=== PATIENT | male | born 1965 | race African-American/Black ===

== ENCOUNTER 2023-09-15 11:45 | Inpatient (IN) | payer MEDICAID ==
[~2023-09-15] VITALS: Ht 180.3 cm; Wt 87.0 kg
[2023-09-15 13:17] LABS: Hematocrit 44.6 % (41.0-53.0); Hemoglobin 14.5 g/dL (13.5-17.5); Mean Corpuscular Hemoglobin 29.1 pg (28.0-32.0); Mean Corpuscular Hgb Conc. 32.5 g/dL (32.0-36.0); Mean Corpuscular Volume 89.5 fL (80.0-100.0); Red Blood Cells 4.99 10^6/uL (4.5-5.90); Red Cell Distribution Width 13.7 % (11.8-14.3); White Blood Cell 20.7 10^3/uL (4.4-10.8)
[2023-09-15 13:30] LABS: Alanine Aminotransferase 11 U/L (7-40); Albumin 4.6 g/dL (3.2-4.8); Alkaline Phosphatase 80 U/L (46-116); Anion Gap 9 (5-15); Aspartate Aminotransferase 10 U/L (13-40); BUN/Creatinine Ratio 20.9 (10.0-20.0); Blood Urea Nitrogen 23 mg/dL (9-23); Carbon Dioxide 24 mmol/L (20-30); Chloride 102 mmol/L (98-107); Glucose 144 mg/dL (74-106); Lipase 22 U/L (12-53); Potassium 4.5 mmol/L (3.5-5.1); Sodium 135 mmol/L (136-145)
[2023-09-15 13:31] LABS: Bilirubin, Total 1.9 mg/dL (0.2-1.0); Total Protein 7.5 g/dL (5.7-8.2)
[2023-09-15 13:57] LABS: Basophils % (manual) 0 (0.0-2.0); Blast Cells 0; Eosinophils % (manual) 0 (0-7); Metamyelocytes % 0; Monocytes % (manual) 0 (0-12); Promyelocytes % 0; Reactive Lymphocytes 0
[2023-09-15 14:15] LABS: Urine Bacteria NONE SEEN /hpf (None Seen); Urine Blood 1+ /uL (Negative); Urine Clarity HAZY (Clear); Urine Color Brown (Yellow); Urine Hyaline Cast FEW /lpf (0 - 2); Urine Mucus MODERATE (None Seen); Urine Protein, UAD 2+ (Negative); Urine Specific Gravity 1.037 (1.001-1.035); Urine Urobilinogen >12.0 mg/dL (Negative); Urine WBC 4 /hpf (0 - 3); Urine pH 5.5 (5.0-8.0)
[2023-09-15] MEDS ORDERED: cefTRIAXone 1GM/50ML D5W 50 ML IV ONE (14:15)
[2023-09-15] MEDS ORDERED: metroNIDAZOLE 500MG/100ML 100 ML IV ONE (14:15)
[2023-09-15] MEDS ORDERED: SODIUM CHLORIDE 0.9% 1,000 ML IV ONE ×2 (14:15)
[2023-09-15 14:27] LABS: Band Neutrophils % (manual) 10; Lymphocytes % (manual) 3 (10.0-50.0); Myelocytes % 2
[2023-09-15 14:28] LABS: Platelet Estimate Adequate
[2023-09-15 14:52] LABS: INR 0.98 (0.9-1.15); Partial Thromboplastin Time 29.6 SEC (24.5-34.5); Prothrombin Time 10.3 sec (9.3-11.8)
[2023-09-15] MEDS ORDERED: ONDANSETRON HCL 4 MG/2 ML VIAL IV ONE (16:00)
[2023-09-15] MEDS ORDERED: ACETAMINOPHEN IV 1000 MG/100ML (10MG/ML) IV ONE (16:00)
[2023-09-15] MEDS ORDERED: MORPHINE SULFATE 4 MG/ML SYR/VIAL IV ONE (16:00)
[2023-09-15] MEDS ORDERED: VANCOMYCIN PER PHARMACY 0 MG IV SCH (17:45)
[2023-09-15] MEDS ORDERED: DEXTROSE (50%) 50ML SYRG IV PRN (17:45)
[2023-09-15] MEDS: SODIUM CHLORIDE 0.9% 1,000 ML IV SCH ×2 (17:45→18:45)
[2023-09-15] MEDS ORDERED: SODIUM CHLORIDE 0.9% 2,000 ML IV ONE (17:45)
[2023-09-15] MEDS ORDERED: VANCOMYCIN 1GM/250ML 250 ML IV ONE ×2 (18:30→20:45)
[2023-09-15 18:54] LABS: INR 1.01 (0.9-1.15); Prothrombin Time 10.6 sec (9.3-11.8)
[2023-09-15 19:57] VITALS: PULSE 85; RESP 22; O2SAT 93
[2023-09-15] MEDS: InsuLIN REG 1unit/0.01ml Soln (100units/ml) SC SCH (20:58)
[2023-09-15] MEDS: ACCU-CHEK COMFORT CURVE STRIP VI SCH (21:00)
[2023-09-15] MEDS: CEFEPIME 2GM/50ML NS 50 ML IV SCH (23:47)
[2023-09-16] MEDS: MORPHINE SULFATE INJ 2 MG/ml SYRG IV PRN (02:24)
[2023-09-16] MEDS: ONDANSETRON HCL 4 MG/2 ML VIAL IV PRN (02:24)
[2023-09-16 04:23] LABS: Basophils # (auto) 0.1 10 ^3/uL (0-0.2); Basophils % (auto) 0.3 % (0.0-2.0); Eosinophils # (auto) 0 10 ^3/uL (0-0.8); Eosinophils % (auto) 0.1 % (0.0-7.0); Hemoglobin 12.5 g/dL (13.5-17.5); Mean Corpuscular Hemoglobin 28.7 pg (28.0-32.0); Mean Corpuscular Volume 89.5 fL (80.0-100.0); Monocytes # (auto) 0.7 10 ^3/uL (0-1.3); Monocytes % (auto) 4.5 % (0.0-12.0); Neutrophils # (auto) 14.7 10 ^3/uL (1.6-8.6); Neutrophils % (auto) 89.1 % (37.0-80.0); Red Blood Cells 4.35 10^6/uL (4.5-5.90); Red Cell Distribution Width 13.6 % (11.8-14.3); White Blood Cell 16.5 10^3/uL (4.4-10.8)
[2023-09-16 05:01] LABS: Alanine Aminotransferase < 9 U/L (7-40); Albumin 4.1 g/dL (3.2-4.8); Alkaline Phosphatase 60 U/L (46-116); Anion Gap 5 (5-15); Aspartate Aminotransferase 11 U/L (13-40); BUN/Creatinine Ratio 16.5 (10.0-20.0); Bilirubin, Total 0.9 mg/dL (0.2-1.0); Blood Urea Nitrogen 13 mg/dL (9-23); Calcium 9.3 mg/dL (8.7-10.4); Carbon Dioxide 24 mmol/L (20-30); Chloride 106 mmol/L (98-107); Glucose 128 mg/dL (74-106); Potassium 4.7 mmol/L (3.5-5.1); Sodium 135 mmol/L (136-145); Total Protein 6.9 g/dL (5.7-8.2)
[2023-09-16] MEDS: CEFEPIME 2GM/50ML NS 50 ML IV SCH ×2 (06:02→17:51)
[2023-09-16] MEDS: ACCU-CHEK COMFORT CURVE STRIP VI SCH ×3 (06:02→18:00)
[2023-09-16] MEDS: InsuLIN REG 1unit/0.01ml Soln (100units/ml) SC SCH ×3 (06:08→18:00)
[2023-09-16] MEDS ORDERED: ACETAMINOPHEN IV 1000 MG/100ML (10MG/ML) IV ONE (08:30)
[2023-09-16] MEDS ORDERED: DexAMETHasone SOD PHOS 4 MG/1ML SDV INJ ONE (08:40)
[2023-09-16] MEDS ORDERED: EPINEPHrine HCL 1 MG/1 ML AMP ONE (08:40)
[2023-09-16] MEDS ORDERED: LIDOCAINE 2% JELLY 11ml (GLYDO) ONE (08:41)
[2023-09-16] MEDS ORDERED: BUPIVACAINE HCL 50 ML ONE (08:41)
[2023-09-16] MEDS ORDERED: GABAPENTIN 300 MG CAP PO ONE (08:45)
[2023-09-16] MEDS ORDERED: CELECOXIB 100 MG CAP PO ONE (08:45)
[2023-09-16] MEDS ORDERED: SODIUM CHLORIDE LOCK 30 ML ONE (08:52)
[2023-09-16] MEDS ORDERED: SODIUM CHLORIDE LOCK 20 ML ONE (08:53)
[2023-09-16] MEDS ORDERED: KETOROLAC TROMETH 30 MG/ML 1ML VIAL ONE (08:55)
[2023-09-16] MEDS ORDERED: PROPOFOL 10 MG/ML 20 ML IV ONE (08:55)
[2023-09-16] MEDS ORDERED: ONDANSETRON HCL 4 MG/2 ML VIAL ONE (08:55)
[2023-09-16] MEDS ORDERED: DexAMETHasone SOD PHOS 10MG/1ML VIAL INJ ONE (08:55)
[2023-09-16] MEDS ORDERED: ROCURONIUM 10MG/ML 10ML VIAL IV ONE (08:55)
[2023-09-16] MEDS ORDERED: GLYCOPYRROLATE 0.2 MG/ML 1ML VIAL ONE (08:55)
[2023-09-16] MEDS ORDERED: LIDOCAINE 2% (LOCAL ANESTH.) PF 5ml SDV ONE (08:55)
[2023-09-16] MEDS: SODIUM CHLORIDE 0.9% 1,000 ML IV SCH ×2 (10:25→17:55)
[2023-09-16] MEDS ORDERED: fentaNYL CITRATE 100 MCG/2 ML VL ONE (10:36)
[2023-09-16] MEDS ORDERED: ESMOLOL HCL 10 ML IV ONE (10:38)
[2023-09-16] MEDS ORDERED: LABETALOL HCL 5 MG/ML ML 20ML VIAL IV ONE (11:04)
[2023-09-16] MEDS ORDERED: VANCOMYCIN 1GM/250ML 250 ML IV SCH (13:00)
[2023-09-16 13:10] VITALS: O2SAT 99
[2023-09-16] MEDS ORDERED: ONDANSETRON HCL 4 MG/2 ML VIAL IV PRN (13:30)
[2023-09-16] MEDS ORDERED: LABETALOL HCL 5 MG/ML 4ML SYRINGE IV PRN (13:30)
[2023-09-16] MEDS ORDERED: HYDROmorphone HCL 2 MG/ML VL/or syr IV PRN (13:30)
[2023-09-16] MEDS ORDERED: hydrALAZINE HCL 20 MG/ML VL IV PRN (13:30)
[2023-09-16] MEDS ORDERED: FLUMAZENIL 0.1 MG/ML INJ 10ML MDV IV PRN (13:30)
[2023-09-16] MEDS ORDERED: oxyCODONE HCL 5MG TAB PO PRN (13:30)
[2023-09-16] MEDS ORDERED: fentaNYL CITRATE 100 MCG/2 ML VL IV PRN (13:30)
[2023-09-16] MEDS ORDERED: ePHEDrine SULFATE 50 MG/ML AMP IV PRN (13:30)
[2023-09-16] MEDS ORDERED: NALOXONE HCL 0.4 MG/ML VIAL IV PRN (13:30)
[2023-09-16 16:05] VITALS: BP 145/89; PULSE 76; RESP 18; TEMP 98.3
[2023-09-16 16:15] VITALS: PULSE 76; RESP 18; O2SAT 95
[2023-09-16 17:00] VITALS: BP 145/89; PULSE 76; RESP 18; TEMP 98.3; O2SAT 95
[2023-09-16 20:00] VITALS: BP 140/89; PULSE 85; RESP 18; RESP 23; TEMP 99.1; O2SAT 97
[2023-09-16 22:00] VITALS: BP 140/87; PULSE 85; RESP 23; TEMP 99.1; O2SAT 97
[2023-09-17] MEDS: VANCOMYCIN 1GM/250ML 250 ML IV SCH ×2 (01:14→07:04)
[2023-09-17] MEDS: ACCU-CHEK COMFORT CURVE STRIP VI SCH ×4 (01:17→18:00)
[2023-09-17] MEDS: MORPHINE SULFATE INJ 2 MG/ml SYRG IV PRN ×4 (01:30→21:23)
[2023-09-17] MEDS: SODIUM CHLORIDE 0.9% 1,000 ML IV SCH (03:05)
[2023-09-17 05:00] VITALS: BP 143/76; PULSE 77; RESP 20; TEMP 99; O2SAT 95
[2023-09-17 05:06] LABS: Basophils # (auto) 0 10 ^3/uL (0-0.2); Basophils % (auto) 0.1 % (0.0-2.0); Eosinophils # (auto) 0 10 ^3/uL (0-0.8); Hematocrit 36.1 % (41.0-53.0); Hemoglobin 11.6 g/dL (13.5-17.5); Lymphocytes # (auto) 0.7 10 ^3/uL (0.4-5.4); Lymphocytes % (auto) 3.9 % (10.0-50.0); Mean Corpuscular Hemoglobin 28.4 pg (28.0-32.0); Mean Corpuscular Hgb Conc. 32.1 g/dL (32.0-36.0); Mean Corpuscular Volume 88.6 fL (80.0-100.0); Monocytes % (auto) 5.3 % (0.0-12.0); Neutrophils # (auto) 16.9 10 ^3/uL (1.6-8.6); Neutrophils % (auto) 90.7 % (37.0-80.0); Red Blood Cells 4.07 10^6/uL (4.5-5.90); Red Cell Distribution Width 13.8 % (11.8-14.3); White Blood Cell 18.6 10^3/uL (4.4-10.8)
[2023-09-17 05:20] LABS: Albumin 3.5 g/dL (3.2-4.8); Alkaline Phosphatase 52 U/L (46-116); Anion Gap 5 (5-15); Aspartate Aminotransferase 17 U/L (13-40); Bilirubin, Total 0.7 mg/dL (0.2-1.0); Blood Urea Nitrogen 20 mg/dL (9-23); Calcium 8.8 mg/dL (8.7-10.4); Carbon Dioxide 25 mmol/L (20-30); Chloride 109 mmol/L (98-107); Glucose 135 mg/dL (74-106); Magnesium 1.9 mg/dL (1.6-2.6); Potassium 4.5 mmol/L (3.5-5.1); Sodium 139 mmol/L (136-145)
[2023-09-17 05:24] LABS: Alanine Aminotransferase 9 U/L (7-40)
[2023-09-17] MEDS: PANTOPRAZOLE 40 MG/10 ML VIAL INJ IV SCH ×2 (05:38→08:58)
[2023-09-17] MEDS: InsuLIN REG 1unit/0.01ml Soln (100units/ml) SC SCH ×4 (05:38→18:00)
[2023-09-17] MEDS ORDERED: CEFEPIME 2GM/50ML NS 50 ML IV SCH (06:00)
[2023-09-17 09:00] VITALS: BP 137/78; PULSE 67; RESP 19; TEMP 98.1; O2SAT 92
[2023-09-17] MEDS: metroNIDAZOLE 500MG/100ML 100 ML IV SCH ×2 (13:39→21:21)
[2023-09-17] MEDS ORDERED: VANCOMYCIN 1GM/250ML 250 ML IV SCH (15:00)
[2023-09-17] MEDS ORDERED: CLINIMIX PER PHARMACY 0 ML IV SCH (15:15)
[2023-09-17] MEDS ORDERED: DEXTROSE (50%) 50ML SYRG IV SCH (16:30)
[2023-09-17 17:00] VITALS: BP 144/84; PULSE 72; RESP 19; TEMP 98.3; O2SAT 93
[2023-09-17] MEDS: ONDANSETRON HCL 4 MG/2 ML VIAL IV PRN (17:00)
[2023-09-17 20:00] VITALS: PULSE 80; RESP 18
[2023-09-17] MEDS: AMINO ACID INFUSION IN D10W 1,000 ML IV SCH (20:49)
[2023-09-17] MEDS: CIPROFLOXACIN 400MG/200ML 200 ML IV SCH (22:58)
[2023-09-17 23:59] VITALS: BP 132/73; PULSE 71; RESP 18; TEMP 98.4; O2SAT 92
[2023-09-18] MEDS: ACCU-CHEK COMFORT CURVE STRIP VI SCH ×4 (01:41→18:00)
[2023-09-18 04:54] VITALS: BP 133/78; PULSE 65; RESP 17; TEMP 97.7; O2SAT 92
[2023-09-18] MEDS: metroNIDAZOLE 500MG/100ML 100 ML IV SCH ×3 (05:55→20:51)
[2023-09-18] MEDS: InsuLIN REG 1unit/0.01ml Soln (100units/ml) SC SCH ×4 (06:00→18:00)
[2023-09-18 06:58] LABS: Alanine Aminotransferase 12 U/L (7-40); Albumin 3.5 g/dL (3.2-4.8); Alkaline Phosphatase 48 U/L (46-116); Anion Gap 7 (5-15); Aspartate Aminotransferase 19 U/L (13-40); Bilirubin, Total 0.6 mg/dL (0.2-1.0); Blood Urea Nitrogen 18 mg/dL (9-23); Calcium 9.2 mg/dL (8.5-10.1); Carbon Dioxide 26 mmol/L (20-30); Chloride 109 mmol/L (98-107); Cholesterol 135 mg/dL (< 200); Glucose 125 mg/dL (74-106); HDL Cholesterol 16 mg/dL (40-59); LDL Cholesterol 90 mg/dL (< 100); Potassium 3.8 mmol/L (3.5-5.1); Sodium 142 mmol/L (136-145); Total Protein 5.6 g/dL (5.7-8.2); Triglycerides 135 mg/dL (< 150)
[2023-09-18 07:08] LABS: Basophils # (auto) 0 10 ^3/uL (0-0.2); Basophils % (auto) 0.1 % (0.0-2.0); Eosinophils # (auto) 0 10 ^3/uL (0-0.8); Eosinophils % (auto) 0.2 % (0.0-7.0); Lymphocytes # (auto) 1.7 10 ^3/uL (0.4-5.4); Lymphocytes % (auto) 11.6 % (10.0-50.0); Mean Corpuscular Hemoglobin 28.7 pg (28.0-32.0); Mean Corpuscular Hgb Conc. 32.3 g/dL (32.0-36.0); Mean Corpuscular Volume 88.9 fL (80.0-100.0); Monocytes % (auto) 7.1 % (0.0-12.0); Neutrophils # (auto) 11.6 10 ^3/uL (1.6-8.6); Red Blood Cells 3.83 10^6/uL (4.5-5.90); Red Cell Distribution Width 13.7 % (11.8-14.3); White Blood Cell 14.3 10^3/uL (4.4-10.8)
[2023-09-18 07:13] LABS: Magnesium 1.9 mg/dL (1.6-2.6)
[2023-09-18 09:00] VITALS: BP 140/78; PULSE 67; RESP 18; TEMP 99.2; O2SAT 94
[2023-09-18] MEDS: PANTOPRAZOLE 40 MG/10 ML VIAL INJ IV SCH (09:52)
[2023-09-18] MEDS: CIPROFLOXACIN 400MG/200ML 200 ML IV SCH ×2 (09:53→20:35)
[2023-09-18 12:14] VITALS: BP 125/75; PULSE 56; RESP 16; TEMP 98.8; O2SAT 95
[2023-09-18] MEDS: MORPHINE SULFATE INJ 2 MG/ml SYRG IV PRN (15:04)
[2023-09-18 17:00] VITALS: BP 136/94; PULSE 67; RESP 18; TEMP 98.7; O2SAT 94
[2023-09-18 20:00] VITALS: RESP 16; O2SAT 93
[2023-09-18] MEDS: AMINO ACID INFUSION IN D10W 1,000 ML IV SCH (20:35)
[2023-09-18 21:32] VITALS: BP 141/85; PULSE 63; RESP 16; TEMP 97.6; O2SAT 93
[2023-09-19] VITALS (7 sets, daily range): BP systolic 120–152; BP diastolic 67–85; PULSE 58–68; RESP 16–22; TEMP 97.7–98.2; O2SAT 92–100
[2023-09-19] MEDS: ACCU-CHEK COMFORT CURVE STRIP VI SCH ×4 (00:49→18:20)
[2023-09-19 05:31] LABS: Calcium 9.3 mg/dL (8.5-10.1); Chloride 109 mmol/L (98-107); Potassium 3.8 mmol/L (3.5-5.1); Sodium 141 mmol/L (136-145)
[2023-09-19 05:33] LABS: Anion Gap 8 (5-15); Carbon Dioxide 24 mmol/L (20-30)
[2023-09-19 05:36] LABS: GFR African American 166 mL/min; GFR Non-African American 137 mL/min; Glucose 102 mg/dL (74-106)
[2023-09-19 05:37] LABS: Albumin 3.6 g/dL (3.2-4.8); BUN/Creatinine Ratio 26.6 (10.0-20.0); Blood Urea Nitrogen 17 mg/dL (9-23)
[2023-09-19 05:39] LABS: Phosphorus 3.7 mg/dL (2.4-5.1)
[2023-09-19 05:49] LABS: Basophils # (auto) 0 10 ^3/uL (0-0.2); Basophils % (auto) 0.2 % (0.0-2.0); Eosinophils # (auto) 0.1 10 ^3/uL (0-0.8); Eosinophils % (auto) 0.5 % (0.0-7.0); Hematocrit 34.7 % (41.0-53.0); Hemoglobin 11.2 g/dL (13.5-17.5); Lymphocytes # (auto) 1.8 10 ^3/uL (0.4-5.4); Lymphocytes % (auto) 14.5 % (10.0-50.0); Mean Corpuscular Hemoglobin 28.7 pg (28.0-32.0); Mean Corpuscular Hgb Conc. 32.4 g/dL (32.0-36.0); Mean Corpuscular Volume 88.5 fL (80.0-100.0); Monocytes # (auto) 1.1 10 ^3/uL (0-1.3); Monocytes % (auto) 8.9 % (0.0-12.0); Neutrophils # (auto) 9.5 10 ^3/uL (1.6-8.6); Neutrophils % (auto) 75.9 % (37.0-80.0); Nucleated Red Blood Cells % 0.2 %; Red Blood Cells 3.92 10^6/uL (4.5-5.90); Red Cell Distribution Width 13.6 % (11.8-14.3); White Blood Cell 12.6 10^3/uL (4.4-10.8)
[2023-09-19] MEDS: InsuLIN REG 1unit/0.01ml Soln (100units/ml) SC SCH ×4 (06:00→18:00)
[2023-09-19] MEDS: metroNIDAZOLE 500MG/100ML 100 ML IV SCH ×2 (06:36→15:56)
[2023-09-19 06:43] LABS: Magnesium 1.9 mg/dL (1.6-2.6)
[2023-09-19] MEDS: CIPROFLOXACIN 400MG/200ML 200 ML IV SCH (10:53)
[2023-09-19] MEDS: PANTOPRAZOLE 40 MG/10 ML VIAL INJ IV SCH (10:53)
[2023-09-19] MEDS ORDERED: TPN PER PHARMACY 0 ML IV SCH (14:30)
[2023-09-19] MEDS ORDERED: AMINO ACID INFUSION IN D10W 1,000 ML IV NR (20:00)
[2023-09-19] MEDS: MORPHINE SULFATE INJ 2 MG/ml SYRG IV PRN (23:58)
[2023-09-20] MEDS: ACCU-CHEK COMFORT CURVE STRIP VI SCH ×4 (00:21→18:00)
[2023-09-20] MEDS: metroNIDAZOLE 500MG/100ML 100 ML IV SCH ×3 (01:36→22:00)
[2023-09-20 05:04] VITALS: BP 146/83; PULSE 56; RESP 18; TEMP 97.8; O2SAT 93
[2023-09-20] MEDS ORDERED: hydrALAZINE HCL 20 MG/ML VL IV PRN (06:45)
[2023-09-20] MEDS: InsuLIN REG 1unit/0.01ml Soln (100units/ml) SC SCH ×4 (07:00→18:00)
[2023-09-20 07:05] LABS: Hemoglobin 11.9 g/dL (13.5-17.5)
[2023-09-20 07:07] LABS: Mean Corpuscular Hemoglobin 29.2 pg (28.0-32.0); Mean Corpuscular Volume 88.5 fL (80.0-100.0); Red Blood Cells 4.07 10^6/uL (4.5-5.90); Red Cell Distribution Width 13.9 % (11.8-14.3); White Blood Cell 14.1 10^3/uL (4.4-10.8)
[2023-09-20 07:15] LABS: Basophils % (manual) 0 (0.0-2.0); Blast Cells 0; Myelocytes % 0; Promyelocytes % 0; Reactive Lymphocytes 0
[2023-09-20 07:18] LABS: Alanine Aminotransferase 29 U/L (7-40); Albumin 3.8 g/dL (3.2-4.8); Alkaline Phosphatase 86 U/L (46-116); Anion Gap 8 (5-15); Aspartate Aminotransferase 33 U/L (13-40); BUN/Creatinine Ratio 27.4 (10.0-20.0); Blood Urea Nitrogen 17 mg/dL (9-23); Calcium 9.5 mg/dL (8.5-10.1); Carbon Dioxide 24 mmol/L (20-30); Chloride 107 mmol/L (98-107); Glucose 118 mg/dL (74-106); Potassium 3.6 mmol/L (3.5-5.1); Sodium 139 mmol/L (136-145)
[2023-09-20 07:19] LABS: Bilirubin, Total 1.3 mg/dL (0.2-1.0); Phosphorus 3.2 mg/dL (2.4-5.1); Total Protein 6.4 g/dL (5.7-8.2)
[2023-09-20 08:00] VITALS: PULSE 71; RESP 16; O2SAT 95
[2023-09-20 08:13] LABS: Band Neutrophils % (manual) 6; Eosinophils % (manual) 1 (0-7); Lymphocytes % (manual) 15 (10.0-50.0); Metamyelocytes % 1; Monocytes % (manual) 8 (0-12)
[2023-09-20 08:14] LABS: Platelet Estimate Increased; Tear Drop Cells FEW
[2023-09-20] MEDS: CIPROFLOXACIN 400MG/200ML 200 ML IV SCH ×3 (08:21→22:03)
[2023-09-20] MEDS: PANTOPRAZOLE 40 MG/10 ML VIAL INJ IV SCH (08:23)
[2023-09-20 12:22] LABS: Urine Bacteria NONE SEEN /hpf (None Seen); Urine Blood 1+ /uL (Negative); Urine Clarity Clear (Clear); Urine Color Yellow (Yellow); Urine Mucus FEW (None Seen); Urine Protein, UAD TRACE (Negative); Urine Specific Gravity 1.034 (1.001-1.035); Urine WBC 6 /hpf (0 - 3)
[2023-09-20 13:00] VITALS: BP 160/87; PULSE 71; RESP 20; TEMP 97.7; O2SAT 96
[2023-09-20 13:37] LABS: Magnesium 1.8 mg/dL (1.6-2.6)
[2023-09-20 17:00] VITALS: BP 137/90; PULSE 80; RESP 18; TEMP 97.8; O2SAT 98
[2023-09-20 20:00] VITALS: PULSE 76; RESP 20; O2SAT 95
[2023-09-20] MEDS ORDERED: PPN PER PHARMACY IV NR ×8 (20:00)
[2023-09-20] MEDS ORDERED: CLINIMIX PER PHARMACY 0 ML IV SCH (21:15)
[2023-09-20 22:00] VITALS: BP 131/89; PULSE 76; RESP 20; TEMP 98.5; O2SAT 95
[2023-09-20] MEDS: MORPHINE SULFATE INJ 2 MG/ml SYRG IV PRN (22:01)
[2023-09-21] MEDS: ACCU-CHEK COMFORT CURVE STRIP VI SCH ×5 (02:20→23:20)
[2023-09-21] MEDS: InsuLIN REG 1unit/0.01ml Soln (100units/ml) SC SCH ×5 (02:26→23:20)
[2023-09-21 05:00] VITALS: BP 131/88; PULSE 73; RESP 20; TEMP 97.6; O2SAT 98
[2023-09-21] MEDS: metroNIDAZOLE 500MG/100ML 100 ML IV SCH ×3 (07:13→22:39)
[2023-09-21 07:54] LABS: Basophils # (auto) 0.1 10 ^3/uL (0-0.2); Eosinophils # (auto) 0.2 10 ^3/uL (0-0.8); Eosinophils % (auto) 1.4 % (0.0-7.0); Mean Corpuscular Hgb Conc. 32.7 g/dL (32.0-36.0)
[2023-09-21 07:57] LABS: Basophils % (auto) 0.8 % (0.0-2.0); Hematocrit 38.9 % (41.0-53.0); Hemoglobin 12.7 g/dL (13.5-17.5); Lymphocytes % (auto) 15.8 % (10.0-50.0); Mean Corpuscular Hemoglobin 29.2 pg (28.0-32.0); Mean Corpuscular Volume 89.1 fL (80.0-100.0); Monocytes # (auto) 0.9 10 ^3/uL (0-1.3); Monocytes % (auto) 7.3 % (0.0-12.0); Neutrophils # (auto) 9.4 10 ^3/uL (1.6-8.6); Neutrophils % (auto) 74.7 % (37.0-80.0); Nucleated Red Blood Cells % 0.1 %; Red Blood Cells 4.37 10^6/uL (4.5-5.90); Red Cell Distribution Width 13.8 % (11.8-14.3); White Blood Cell 12.6 10^3/uL (4.4-10.8)
[2023-09-21 08:14] LABS: Alanine Aminotransferase 57 U/L (7-40); Albumin 3.8 g/dL (3.2-4.8); Alkaline Phosphatase 94 U/L (46-116); Anion Gap 9 (5-15); Aspartate Aminotransferase 51 U/L (13-40); BUN/Creatinine Ratio 28.1 (10.0-20.0); Bilirubin, Total 1.4 mg/dL (0.2-1.0); Blood Urea Nitrogen 18 mg/dL (9-23); Calcium 9.4 mg/dL (8.5-10.1); Carbon Dioxide 23 mmol/L (20-30); Chloride 106 mmol/L (98-107); Glucose 113 mg/dL (74-106); Phosphorus 3.2 mg/dL (2.4-5.1); Potassium 3.9 mmol/L (3.5-5.1); Sodium 138 mmol/L (136-145)
[2023-09-21 08:15] LABS: Total Protein 6.5 g/dL (5.7-8.2)
[2023-09-21 09:00] VITALS: BP 129/86; PULSE 67; RESP 18; TEMP 97.6; O2SAT 94
[2023-09-21 09:03] LABS: Magnesium 1.9 mg/dL (1.6-2.6)
[2023-09-21] MEDS: CIPROFLOXACIN 400MG/200ML 200 ML IV SCH ×2 (09:21→22:39)
[2023-09-21 13:00] VITALS: BP 140/90; PULSE 75; RESP 19; TEMP 97.9; O2SAT 98
[2023-09-21 16:48] VITALS: BP 139/84; PULSE 76; RESP 18; TEMP 97.8; O2SAT 94
[2023-09-21] MEDS ORDERED: PPN PER PHARMACY IV NR ×10 (20:00)
[2023-09-21 20:15] VITALS: PULSE 74; RESP 18; O2SAT 94
[2023-09-21 22:00] VITALS: BP 111/78; PULSE 74; RESP 18; TEMP 98.3; O2SAT 94
[2023-09-22 05:00] VITALS: BP 132/78; PULSE 80; RESP 17; TEMP 97.9; O2SAT 99
[2023-09-22] MEDS: InsuLIN REG 1unit/0.01ml Soln (100units/ml) SC SCH ×4 (05:41→23:53)
[2023-09-22] MEDS: metroNIDAZOLE 500MG/100ML 100 ML IV SCH ×3 (05:41→22:35)
[2023-09-22] MEDS: ACCU-CHEK COMFORT CURVE STRIP VI SCH ×4 (05:41→23:53)
[2023-09-22 06:21] LABS: Hemoglobin 12.8 g/dL (13.5-17.5); Mean Corpuscular Volume 88.3 fL (80.0-100.0)
[2023-09-22 06:24] LABS: Hematocrit 39.1 % (41.0-53.0); Mean Corpuscular Hemoglobin 28.8 pg (28.0-32.0); Mean Corpuscular Hgb Conc. 32.7 g/dL (32.0-36.0); Red Blood Cells 4.44 10^6/uL (4.5-5.90); White Blood Cell 13.9 10^3/uL (4.4-10.8)
[2023-09-22 06:57] LABS: Alanine Aminotransferase 69 U/L (7-40); Albumin 3.8 g/dL (3.2-4.8); Alkaline Phosphatase 99 U/L (46-116); Anion Gap 8 (5-15); Aspartate Aminotransferase 48 U/L (13-40); BUN/Creatinine Ratio 29.3 (10.0-20.0); Bilirubin, Total 1.3 mg/dL (0.2-1.0); Blood Urea Nitrogen 17 mg/dL (9-23); Calcium 9.2 mg/dL (8.7-10.4); Carbon Dioxide 23 mmol/L (20-30); Chloride 106 mmol/L (98-107); Glucose 99 mg/dL (74-106); Magnesium 1.8 mg/dL (1.6-2.6); Potassium 4.2 mmol/L (3.5-5.1); Sodium 137 mmol/L (136-145); Total Protein 6.5 g/dL (5.7-8.2)
[2023-09-22 07:10] LABS: Basophils % (manual) 0 (0.0-2.0); Blast Cells 0; Promyelocytes % 0; Reactive Lymphocytes 0
[2023-09-22 09:15] LABS: Band Neutrophils % (manual) 3; Eosinophils % (manual) 1 (0-7); Lymphocytes % (manual) 10 (10.0-50.0); Metamyelocytes % 3; Monocytes % (manual) 9 (0-12); Myelocytes % 1; Platelet Estimate Increased
[2023-09-22] MEDS: CIPROFLOXACIN 400MG/200ML 200 ML IV SCH ×2 (09:48→21:22)
[2023-09-22 10:55] VITALS: BP 110/75; PULSE 74; RESP 16; TEMP 98.9; O2SAT 97
[2023-09-22 17:33] VITALS: BP 132/69; PULSE 71; RESP 18; TEMP 98.7; O2SAT 98
[2023-09-22] MEDS ORDERED: TPN PER PHARMACY IV NR ×10 (20:00)
[2023-09-22] MEDS ORDERED: PPN PER PHARMACY IV NR ×10 (20:00)
[2023-09-22 22:00] VITALS: BP 119/72; PULSE 72; RESP 17; TEMP 98.1; O2SAT 94
[2023-09-23 05:00] VITALS: BP 125/76; PULSE 69; RESP 19; TEMP 98; O2SAT 97
[2023-09-23 05:46] LABS: Neutrophils # (auto) 9.2 10 ^3/uL (1.6-8.6)
[2023-09-23 05:48] LABS: Basophils # (auto) 0.1 10 ^3/uL (0-0.2); Basophils % (auto) 0.6 % (0.0-2.0); Eosinophils # (auto) 0.1 10 ^3/uL (0-0.8); Eosinophils % (auto) 1.2 % (0.0-7.0); Hematocrit 37.6 % (41.0-53.0); Hemoglobin 12.6 g/dL (13.5-17.5); Lymphocytes % (auto) 15.9 % (10.0-50.0); Mean Corpuscular Hemoglobin 29.8 pg (28.0-32.0); Mean Corpuscular Hgb Conc. 33.7 g/dL (32.0-36.0); Mean Corpuscular Volume 88.6 fL (80.0-100.0); Monocytes % (auto) 8.4 % (0.0-12.0); Neutrophils % (auto) 73.9 % (37.0-80.0); Red Blood Cells 4.24 10^6/uL (4.5-5.90); Red Cell Distribution Width 13.9 % (11.8-14.3); White Blood Cell 12.4 10^3/uL (4.4-10.8)
[2023-09-23 05:54] LABS: Alanine Aminotransferase 67 U/L (7-40); Albumin 3.7 g/dL (3.2-4.8); Alkaline Phosphatase 99 U/L (46-116); Anion Gap 6 (5-15); Aspartate Aminotransferase 38 U/L (13-40); Blood Urea Nitrogen 17 mg/dL (9-23); Calcium 8.9 mg/dL (8.7-10.4); Carbon Dioxide 25 mmol/L (20-30); Chloride 104 mmol/L (98-107); Glucose 114 mg/dL (74-106); Magnesium 1.9 mg/dL (1.6-2.6); Potassium 4.2 mmol/L (3.5-5.1); Sodium 135 mmol/L (136-145)
[2023-09-23 05:55] LABS: Bilirubin, Total 0.9 mg/dL (0.2-1.0)
[2023-09-23 05:56] LABS: Total Protein 6.4 g/dL (5.7-8.2)
[2023-09-23] MEDS: InsuLIN REG 1unit/0.01ml Soln (100units/ml) SC SCH ×3 (06:00→17:51)
[2023-09-23] MEDS: ACCU-CHEK COMFORT CURVE STRIP VI SCH ×3 (06:04→17:51)
[2023-09-23] MEDS: metroNIDAZOLE 500MG/100ML 100 ML IV SCH ×3 (06:04→22:00)
[2023-09-23 08:00] VITALS: BP 130/83; PULSE 76; RESP 20; TEMP 97.4; O2SAT 97
[2023-09-23] MEDS: CIPROFLOXACIN 400MG/200ML 200 ML IV SCH ×2 (08:43→22:00)
[2023-09-23 08:54] VITALS: BP 130/83; PULSE 76; RESP 20; TEMP 97.4; O2SAT 97
[2023-09-23 13:00] VITALS: BP 121/82; PULSE 93; RESP 20; TEMP 98.1; O2SAT 96
[2023-09-23 17:00] VITALS: BP 131/75; PULSE 71; RESP 20; TEMP 98.8; O2SAT 99
[2023-09-23] MEDS ORDERED: PPN PER PHARMACY IV NR ×11 (20:00)
[2023-09-23 22:00] VITALS: BP 117/75; PULSE 71; RESP 20; TEMP 98.4; O2SAT 98
[2023-09-24] MEDS: ACCU-CHEK COMFORT CURVE STRIP VI SCH ×2 (01:25→06:00)
[2023-09-24] MEDS: InsuLIN REG 1unit/0.01ml Soln (100units/ml) SC SCH ×2 (01:25→06:00)
[2023-09-24 05:00] VITALS: BP 125/71; PULSE 68; RESP 18; TEMP 98.4; O2SAT 99
[2023-09-24] MEDS: metroNIDAZOLE 500MG/100ML 100 ML IV SCH ×2 (06:00→13:47)
[2023-09-24 06:14] LABS: Basophils # (auto) 0 10 ^3/uL (0-0.2); Basophils % (auto) 0.3 % (0.0-2.0); Eosinophils # (auto) 0.1 10 ^3/uL (0-0.8); Eosinophils % (auto) 1.1 % (0.0-7.0); Hematocrit 37.1 % (41.0-53.0); Hemoglobin 12.2 g/dL (13.5-17.5); Lymphocytes % (auto) 15.5 % (10.0-50.0); Mean Corpuscular Hemoglobin 29.1 pg (28.0-32.0); Mean Corpuscular Hgb Conc. 32.9 g/dL (32.0-36.0); Mean Corpuscular Volume 88.6 fL (80.0-100.0); Monocytes # (auto) 1.1 10 ^3/uL (0-1.3); Monocytes % (auto) 8.7 % (0.0-12.0); Neutrophils # (auto) 9.6 10 ^3/uL (1.6-8.6); Neutrophils % (auto) 74.4 % (37.0-80.0); Red Blood Cells 4.19 10^6/uL (4.5-5.90)
[2023-09-24 06:28] LABS: Alanine Aminotransferase 66 U/L (7-40); Albumin 3.8 g/dL (3.2-4.8); Alkaline Phosphatase 107 U/L (46-116); Anion Gap 5 (5-15); Aspartate Aminotransferase 30 U/L (13-40); BUN/Creatinine Ratio 22.8 (10.0-20.0); Blood Urea Nitrogen 13 mg/dL (9-23); Calcium 9.1 mg/dL (8.7-10.4); Carbon Dioxide 25 mmol/L (20-30); Chloride 101 mmol/L (98-107); Glucose 96 mg/dL (74-106); Magnesium 1.8 mg/dL (1.6-2.6); Potassium 4.2 mmol/L (3.5-5.1); Sodium 131 mmol/L (136-145)
[2023-09-24 06:29] LABS: Bilirubin, Total 0.8 mg/dL (0.2-1.0); Phosphorus 3.1 mg/dL (2.4-5.1); Total Protein 6.7 g/dL (5.7-8.2)
[2023-09-24 08:00] VITALS: BP 124/71; PULSE 71; RESP 18; TEMP 97.8; O2SAT 98
[2023-09-24 08:35] VITALS: BP 124/71; PULSE 71; RESP 18; TEMP 97.8; O2SAT 98
[2023-09-24] MEDS: CIPROFLOXACIN 400MG/200ML 200 ML IV SCH (08:38)
[2023-09-24 12:39] VITALS: BP 124/71; PULSE 71; RESP 18; TEMP 97.8; O2SAT 98
[2023-09-24 12:45] VITALS: BP 113/65; PULSE 76; RESP 20; TEMP 98.3; O2SAT 99
[2023-09-24 16:35] VITALS: BP 134/71; PULSE 81; RESP 20; TEMP 99.2; O2SAT 97
== END 2023-09-24 18:10 | disposition home or self-care (01) | DRG 710 ==
LOC: ER 11:45 → TELE 17:41 → CENTRAL 09-16 15:06
PROVIDERS: ADMIT Internal Medicine Pulmonary Disease; ATTEND Student in an Organized Health Care Education/Training Program
PROC: 0D1N0Z4 Bypass Sigmoid Colon to Cutaneous, Open Approach (ICD-10-PCS; 2023-09-16)
PROC: 0DTN0ZZ Resection of Sigmoid Colon, Open Approach (ICD-10-PCS; 2023-09-16)
PROC: 05HC33Z Insertion of Infusion Device into Left Basilic Vein, Percutaneous Approach (ICD-10-PCS; principal; 2023-09-18)
PROC: B54NZZA Ultrasonography of Left Upper Extremity Veins, Guidance (ICD-10-PCS; 2023-09-18)
DX: A41.9 Sepsis, unspecified organism (principal); N17.0 Acute kidney failure with tubular necrosis; K56.50 Intestinal adhesions [bands], unspecified as to partial versus complete obstruction; K57.20 Diverticulitis of large intestine with perforation and abscess without bleeding; E87.1 Hypo-osmolality and hyponatremia; E86.0 Dehydration; K52.9 Noninfective gastroenteritis and colitis, unspecified; F17.210 Nicotine dependence, cigarettes, uncomplicated; D75.839 Thrombocytosis, unspecified; F10.90 Alcohol use, unspecified, uncomplicated; Y90.9 Presence of alcohol in blood, level not specified; Z71.6 Tobacco abuse counseling
CPT/HCPCS: 36415; 71045; 74018; 74176; 76881; 80048; 80053; 80061; 80069; 80202; 80320; 81001; 82140; 82962; 83036; 83605; 83690; 83735; 84100; 84443; 84484; 85007; 85025; 85027; 85610; 85730; 86141; 86850; 86900; 86901; 87040; 87070; 87075; 87077; 87186; 87205; 93005; 96365; 96367; 96375; 96376; 97110; 97116; 97163; 97530; 99291; C9113; G0378; J0131; J0171; J0692; J0696; J1100; J1815; J1885; J2001; J2405; J2704; J3490

== ENCOUNTER 2023-09-25 12:09 | Emergency (ER) | payer MEDICAID ==
[~2023-09-25] VITALS: Ht 177.8 cm; Wt 79.5 kg
[2023-09-25 14:21] VITALS: BP 106/62; PULSE 91; RESP 20; TEMP 98.7; O2SAT 98
== END 2023-09-25 16:16 | disposition home or self-care (01) ==
LOC: ER 12:09
DX: Z48.00 Encounter for change or removal of nonsurgical wound dressing (principal); F17.210 Nicotine dependence, cigarettes, uncomplicated; F12.10 Cannabis abuse, uncomplicated